=== PATIENT | male | born 1970 | race Caucasian/White ===

== ENCOUNTER → 2022-04-05 13:34 | Outpatient (CLI) | payer OTHER, MEDICAID, SELFPAY ==
--- NOTE | 2022-04-05 13:42 | DI.RAD.S_ITS ---
PROCEDURE: FL BARIUM SWALLOW INDICATIONS: DYSPHAGIA/Cardiac murmur COMPARISON: None. FINDINGS: Function: There is normal esophageal peristalsis. There is mild gastroesophageal reflux. There is normal transit of a calibrated barium tablet through the esophagus into the stomach. Morphology: There is normal mucosal morphology. A small sliding hiatal hernia is noted. No esophageal strictures, extrinsic mass effects, or diverticula. Limited images of the stomach demonstrate normal appearance. IMPRESSION: 1. Mild gastroesophageal reflux. 2. Small sliding hiatal hernia. Dictated by: Michelle Singh M.D. on 04/05/2022 at 15:08 Approved by: Michelle Singh M.D. on 04/05/2022 at 15:09
--- NOTE | 2022-04-05 13:42 | DI.ECHO.S_ITS ---
[facility]+ [facility] +---------+ : : [address] : : : : [id number] : : : : Phone: [phone]+ Echocardiogram Report + + :Name: MALIHA CHARLES Study Date: 04/05/2022 Height: 71 in : :[facility] ReadingLocation: Weight: 167 lb : : Gender: Male BSA: 2.0 m2 : :: 1970 Age: 52 yrs BP: 121/70 mmHg: :Reason For Study: Murmur : :Ordering Physician: HODAN, : :PAMELA Arreaga Performed By: Rell Morales : :Referring: PAMELA PETTIT : + + Interpretation Summary The left ventricle is normal in size and wall thickness. The ejection fraction is estimated to be 60-65%. Diastolic parameters suggest a pseudonormalization pattern, consistent with probable elevated filling pressures. The right ventricle is normal in size and function. Suspect bicuspid aortic valve with fusion of right and left coronary cusp with moderate calcification. The aortic valve is moderately calcified. The peak aortic velocity is 2.8 m/sec. The aortic valve mean gradient is 16 mmHg. The calculated aortic valve area is 1.8 cm2. There is mild aortic stenosis. There is mild aortic regurgitation. The ascending aorta is mildly enlarged. The IVC is dilated (diameter is greater than 2.1 cm) yet it collapses greater than 50% with a sniff. This suggests a right atrial pressure of 8 mm Hg. Procedure: A two-dimensional transthoracic echocardiogram with color flow and Doppler was performed. The study quality was technically adequate. There is no prior echocardiogram noted for this patient. The patient was in normal sinus rhythm during the exam. Left Ventricle: The left ventricle is normal in size and wall thickness. There is no thrombus. Left ventricular systolic function is normal. The ejection fraction is estimated to be 60-65%. There are no focal wall motion abnormalities. Diastolic parameters suggest a pseudonormalization pattern, consistent with probable elevated filling pressures. Right Ventricle: The right ventricle is normal in size and function. Atria: Both atria are normal in size. The interatrial septum grossly appears intact with no obvious evidence for an atrial septal defect. Mitral Valve: The mitral valve is normal. There is trace mitral regurgitation. Aortic Valve: A bicuspid aortic valve cannot be excluded. The aortic valve is moderately calcified. There is mild aortic stenosis. The calculated aortic valve area is 1.8 cm2. The aortic valve mean gradient is 16 mmHg. The peak aortic velocity is 2.8 m/sec. There is mild aortic regurgitation. Tricuspid Valve: The tricuspid valve is normal in structure and function. Pulmonary artery pressures cannot be estimated because of the lack of a measurable TR jet velocity. There is trace tricuspid regurgitation. Pulmonic Valve: The pulmonic valve is normal in structure and function. There is trace pulmonic regurgitation. Great Vessels: The aortic root is normal size. The ascending aorta is mildly enlarged. The IVC is dilated (diameter is greater than 2.1 cm) yet it collapses greater than 50% with a sniff. This suggests a right atrial pressure of 8 mm Hg. Pericardium/ Pleura There is no pericardial effusion. There is no pleural effusion. MMode/2D Measurements & Calculations LVIDd: 5.6 cm LVOT diam: 2.4 cm LVIDs: 3.9 cm Ao root diam: 3.5 cm FS: 30.8 % asc Aorta Diam: 3.8 cm IVSd: 1.0 cm LVPWd: 0.86 cm LV colvin. diameter/BSA (cm/m^2): 2.9 LV sys. diameter/BSA (cm/m^2): 2.0 LA dimension: 3.4 cm RA long axis: 5.4 cm LA A2 area: 15.7 cm2 IVC diam: 2.6 cm LA A4 area: 18.7 cm2 LA length (vol): 5.1 cm LA vol: 48.8 ml LA vol index: 25.0 ml/m2 TAPSE_phl: 3.2 cm Doppler Measurements & Calculations Ao V2 max: 280.0 cm/sec LVOT Max Ariel: 105.5 cm/sec Ao V2 mean: 187.0 cm/sec LV V1 max P.5 mmHg Ao max P.0 mmHg LV V1 VTI: 22.5 cm Ao mean P.0 mmHg ANTOLIN(I,D): 1.8 cm2 Ao V2 VTI: 55.2 cm ANTOLIN(V,D): 1.7 cm2 sev ratio: 0.41 ANTOLIN indexed to BSA (cm^2/m^2): 0.94 MV E max ariel: 109.0 cm/sec SV(LVOT): 101.6 ml MV A max ariel: 83.1 cm/sec MV E/A: 1.3 Med Peak E' Ariel: 6.6 cm/sec E/E' med: 16.6 Lat Peak E' Ariel: 9.2 cm/sec E/E' lat: 11.9 E/e' average: 14.2 MV dec time: 0.20 sec AV VR_phl: 0.38 MV P1/2t-pr_phl: 60.0 msec ANTOLIN(VTI)/BSA_phl: 0.94 Reading Physician:06:39 PM
== END ==
PROVIDERS: Family Provider Family Medicine; PCP Family Medicine; Referring Provider Family Medicine; Visit Provider Family Medicine
DX: I35.2 Nonrheumatic aortic (valve) stenosis with insufficiency (principal); I77.89 Other specified disorders of arteries and arterioles; R13.10 Dysphagia, unspecified; R01.1 Cardiac murmur, unspecified; K21.9 Gastro-esophageal reflux disease without esophagitis; K44.9 Diaphragmatic hernia without obstruction or gangrene
CPT/HCPCS: 74220; 93306